=== PATIENT | female | born 1990 | race Caucasian/White ===

== ENCOUNTER → 2016-10-03 | Outpatient (CLI) | payer BC, SELFPAY ==
[~2016-10-03] MED LIST: COLACE-DPS100 MG PO; IRON325 M1 PO; MOTRIN-DPS800 MG PO; NIPPLECREAM TP; PERCOCET 5 DPS1 TAB PO
== END | disposition home or self-care (01) ==
LOC: RAD.S 16:49
DX: M79.89 Other specified soft tissue disorders (principal); M25.472 Effusion, left ankle